=== PATIENT | male | born 1960 | race Caucasian/White ===

== ENCOUNTER 2017-01-12 13:53 | Emergency (ER) | payer OTHER ==
[~2017-01-12] VITALS: Ht 180.3 cm; Wt 79.5 kg
[~2017-01-12 13:53] MED LIST: CLOP75TA28 PO; FERR-83 PO; FURO40TA4 PO; HYDR-4003 PO; HYDR30CR98 RC; HYG25 PO; INSU100I SQ; INSU100I13 SUBQ; LABE200T PO; LIDO15CR9 TP; LIP40 PO; LISI10TA PO; LISI40TA PO; LORA1TAB PO; TORS20TA3 PO; TRAM50TA2 PO
[2017-01-12 14:18] VITALS: BP 182/88; PULSE 83; RESP 15; O2SAT 99
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
[2017-01-12] MEDS: Ondansetron 2 mg/mL 2 mL Inj IVPUSH PRN ×2 (17:29→20:41)
[2017-01-12] MEDS: HYDROmorphone 0.5 mg/0.5 mL iSecure Syringe IVPUSH PRN ×2 (17:30→20:41)
[2017-01-12 17:32] VITALS: BP 142/69; PULSE 85; O2SAT 89; O2SAT 94
[2017-01-12 17:39] LABS: BASOPHILS % (AUTO) 0.6 % (0-3); EOSINOPHILS % (AUTO) 3.5 % (0-5); Mean Corpuscular Hemoglobin 27.4 pg (27.0-35.0); Mean Corpuscular Volume 84.4 fL (81-100); NEUTROPHILS % (AUTO) 76.4 % (40-74); Platelet Count 249 bil/L (150-400)
[2017-01-12 18:07] LABS: INR 0.98 ratio
[2017-01-12 18:19] LABS: APPEARANCE,URINE HAZY (CLEAR,HAZY); COLOR,URINE YELLOW (YELLOW)
[2017-01-12 18:20] LABS: OCCULT BLOOD,URINE SMALL (NEGATIVE); UROBILINOGEN,URINE NORMAL (NORMAL)
[2017-01-12 19:32] VITALS: BP 155/78; PULSE 81; O2SAT 85
[2017-01-12 19:35] VITALS: O2SAT 95
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
[2017-01-12] MEDS ORDERED: INDA2.5T2 PO (19:48)
[2017-01-12] MEDS ORDERED: LISI10TA PO (19:48)
[2017-01-12] MEDS ORDERED: ONDA4TAB9 PO (20:17)
[2017-01-12 20:41] VITALS: BP 152/57; PULSE 78; RESP 13; O2SAT 98
[2017-02-07] MEDS ORDERED: ASPI-973 PO (18:53)
[2017-02-07] MEDS ORDERED: CARV6.252 PO (18:53)
[2017-02-07] MEDS ORDERED: BECL8.7A6 INHALATION (18:57)
[2017-02-07] MEDS ORDERED: INSU100C8 SUBQ (18:57)
[2017-02-07] MEDS ORDERED: LABE200T PO (18:57)
[2017-02-07] MEDS ORDERED: KEN1C EXT (18:57)
[2017-02-07] MEDS ORDERED: ALBU18HF INH (18:59)
== END 2017-01-12 20:42 | disposition home or self-care (01) ==
LOC: SED 13:53
DX: S06.0X0A Concussion without loss of consciousness, initial encounter (principal); M54.9 Dorsalgia, unspecified; I13.0 Hypertensive heart and chronic kidney disease with heart failure and stage 1 through stage 4 chronic kidney disease, or unspecified chronic kidney disease; I50.9 Heart failure, unspecified; N18.3 Chronic kidney disease, stage 3 (moderate); E11.22 Type 2 diabetes mellitus with diabetic chronic kidney disease; E11.43 Type 2 diabetes mellitus with diabetic autonomic (poly)neuropathy; J90 Pleural effusion, not elsewhere classified; V48.0XXA Car driver injured in noncollision transport accident in nontraffic accident, initial encounter; Y93.89 Activity, other specified; Y92.89 Other specified places as the place of occurrence of the external cause; Y99.8 Other external cause status; Z87.891 Personal history of nicotine dependence; Z85.9 Personal history of malignant neoplasm, unspecified; Z79.4 Long term (current) use of insulin; Z79.899 Other long term (current) drug therapy
CPT/HCPCS: 36415; 70450; 71020; 71250; 74176; 80053; 81000; 83690; 83735; 85025; 85610; 93005; 96374; 96375; 96376; 99285; J1170; J2405

== ENCOUNTER 2017-01-12 21:42 | Inpatient (IN) | payer OTHER ==
[~2017-01-12] VITALS: Ht 180.3 cm; Wt 81.7 kg
[~2017-01-12 21:42] MED LIST changes: +INDA2.5T2 PO; +ONDA4TAB9 PO
[2017-01-12 21:51] VITALS: BP 138/88; PULSE 91; RESP 15; O2SAT 93
[2017-01-12] MEDS ORDERED: Ondansetron 2 mg/mL 2 mL Inj ONE (22:33)
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
[2017-01-12 22:56] LABS: BASOPHILS % (AUTO) 0.3 % (0-3); EOSINOPHILS % (AUTO) 1.9 % (0-5); MONOCYTES % (AUTO) 5.9 % (4-12); Mean Corpuscular Hemoglobin 27.6 pg (27.0-35.0); NEUTROPHILS % (AUTO) 86.9 % (40-74); Platelet Count 223 bil/L (150-400)
[2017-01-12 23:15] LABS: INR 1.01 ratio
[2017-01-12 23:32] LABS: Magnesium 1.9 mg/dL (1.6-2.6)
[2017-01-12 23:36] LABS: TROPONIN T 0.136 ug/L (0.0-0.011)
[2017-01-13 00:14] VITALS: BP 160/71; PULSE 86; RESP 17; O2SAT 99
[2017-01-13] MEDS: 0.9% Sodium Chloride 1,000 ML IV SCH ×2 (00:36→13:06)
[2017-01-13] MEDS ORDERED: Glucose 40% Oral Gel 15 Gm Tube PO PRN (00:40)
[2017-01-13] MEDS ORDERED: Atropine 1 mg/10 mL (Code) Syringe IVPUSH PRN (00:40)
[2017-01-13] MEDS ORDERED: Ondansetron 2 mg/mL 2 mL Inj IVPUSH PRN (00:40)
[2017-01-13] MEDS ORDERED: Alum-Mag Hydrox-Simeth 30 mL Suspension PO PRN (00:40)
[2017-01-13 01:30] VITALS: BP 117/52; PULSE 86; RESP 19; O2SAT 94
[2017-01-13 01:51] LABS: Magnesium 1.9 mg/dL (1.6-2.6)
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
[2017-01-13 02:38] LABS: TROPONIN T 0.118 ug/L (0.0-0.011)
--- NOTE | 2017-01-13 02:54 | NUR ---
P) Admit Pt. admitted to CCU at approx. 0130 am, room 2012. Alert and oriented x1, knows he is in hospital but repeats the same question,"how'd I get here?" every 2-3 minutes. Lungs are coarse and with decreased breath sounds bilat. R>L, scattered crackles throughout. Denies pain, bowel tones hyperactive, states he had a BM yesterday. Lowe legs and feet with non-pitting edema and palpable but weak pedal pulses, has a small abrasion on the 2nd toe of his R foot, refused to wear hospital socks or let me check skin under pajama bottoms as he was 'Too cold". has scarring on his shins and abdomen. I) Meds per 's orders, reorient frequently E) Currently resting quietly and drinking diet soda's
--- NOTE | 2017-01-13 07:31 | DRSVH ---
PROCEDURE: X-RAY CHEST ONE VIEW, PORTABLE ([id number]) INDICATIONS: chest pain TECHNIQUE: One view of the chest was acquired. COMPARISON: [facility], CT, CT CHEST WO CON, 01/12/2017, 23:39. [facility], CR, XR CHEST 2VW, 01/12/2017, 16:51. FINDINGS: Surgical changes and devices: None. Lungs and pleura: No pneumothorax. No change in small right greater than left pleural effusions. Mod erate patchy opacity in the right lung base is unchanged. Mediastinum: Mediastinal contours appear normal. Heart size is normal. Bones and chest wall: No suspicious bony lesions. Overlying soft tissues appear unremarkable. IMPRESSION: 1. No change in right lung base pneumonia and right greater than left pleural effusions. Follow up pl ain films of the chest are recommended to ensure resolution, and to exclude underlying or central mal ignancy. Dictated by: Sara Romero M.D. on 01/13/2017 at 7:28 Approved by: Sara Romero M.D. on 01/13/2017 at 7:29
[2017-01-13 07:48] LABS: TROPONIN T 0.13 ug/L (0.0-0.011)
--- NOTE | 2017-01-13 07:50 | DRSVH ---
PROCEDURE: CT BRAIN WITHOUT CONTRAST ([id number]) INDICATIONS: decreased level of consciousness TECHNIQUE: Noncontrast 4.5 mm thick angled axial sections acquired from the foramen magnum to the vertex, with c oronal reformats. COMPARISON: [facility], CT, CT BRAIN WO CON, 01/12/2017, 16:53. FINDINGS: Image quality: Excellent. CSF spaces: Basal cisterns are patent. No extra-axial fluid collections. No change in prominent ex tra-axial fluid adjacent to the right cerebellar hemisphere. The ventricles are symmetric in size and shape. Brain: No intracranial bleeds or masses. No change in small chronic infarct adjacent to the left cau date head. There is cerebral volume loss for age, with resultant ventricular and sulcal prominence. There are periventricular and deep white matter chronic small vessel ischemic changes. There is intr acranial internal carotid artery atherosclerosis. Skull and face: Calvarium and visualized facial bones appear intact, without suspicious lesions. Sinuses: Visualized sinuses and mastoids are clear. IMPRESSION: No acute process. Concordant with preliminary interpretation. Dictated by: Sara Romero M.D. on 01/13/2017 at 7:47 Approved by: Sara Romero M.D. on 01/13/2017 at 7:48
--- NOTE | 2017-01-13 07:55 | DRSVH ---
PROCEDURE: CT CHEST WITHOUT CONTRAST ([id number]) INDICATIONS: dropping HCT, R/O expanding hemothorax TECHNIQUE: Noncontrast 5 mm thick sections acquired from the pulmonary apices to the posterior costophrenic angl es. 7 mm thick coronal and sagittal MIP reformats were then acquired. For radiation dose reduction, the following was used: automated exposure control, adjustment of mA and/or kV according to patient size. COMPARISON: [facility], CT, CT CHEST ABD PELVIS WO CON, 01/12/2017, 18:43. FINDINGS: Image quality: Excellent. Lungs and pleura: No change in severe right lower lobe airspace opacity. No change in scattered left lung scarring and/or atelectasis.. No pneumothorax. No change in moderate right and small left pleur al effusions. Central and peripheral airways are patent and normal in caliber. Mediastinum: Heart size is normal. There is calcification of the coronary vasculature. No pericardia l effusion. No mediastinal adenopathy by size criteria. Thoracic aorta and central pulmonary arteri es are normal in size. Esophagus is normal in caliber. No hiatal hernia. Bones and chest wall: No suspicious bony lesions. No change in soft tissue density focus involving the left breast, measuring 20 mm. No change in mild T12 and L1 compression fractures. No definite acu te vertebral body compression fractures. No axillary or supraclavicular adenopathy by size criteria. Thyroid gland is grossly unremarkable as visualized. Abdomen: Visualized portions of the upper abdomen demonstrate bilateral perinephric fat stranding, a s before. IMPRESSION: 1. No significant change compared to 5.6.17 at 1843 hrs. 2. No change in right greater than left pleural effusions. 3. No change in bilateral perinephric fat stranding, consistent with renal injury. 4. No change in mild T12 and L1 compression fractures. 5. No change in left chest wall soft tissue density, possibly indicating gynecomastia. This could be further assessed with diagnostic mammography, if clinically indicated. 6. No change in right lower lobe pneumonia. 7. Concordant with preliminary interpretation. Dictated by: Sara Romero M.D. on 01/13/2017 at 7:48 Approved by: Sara Romero M.D. on 01/13/2017 at 7:53
[2017-01-13 08:40] VITALS: BP 180/82; PULSE 85; RESP 16; O2SAT 98
[2017-01-13] MEDS: Insulin LISPRO 300 Unit/3 mL Inj SUBQ SCH ×4 (09:03→20:41)
[2017-01-13] MEDS: Sodium Chloride LOK Flush 10 mL Syringe IVFLUSH SCH ×2 (09:10→16:34)
[2017-01-13 11:49] VITALS: BP 167/81; PULSE 85; RESP 16; O2SAT 95
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
[2017-01-13] MEDS: HYDROcodone-APAP 5-325 mg Tablet PO SCH ×2 (14:35→20:42)
--- NOTE | 2017-01-13 14:42 | NUR ---
SOB / HTN/ Glucose/Mentation: Patient reports SOB at rest. When RN is present in the room pt becomes restless and sits up at EOB. SpO2: mid to high 90's on 2L NC. Lung sounds decreased an auscultation. MD notified. No new orders at this time. When pt is alone in room he is able to have long telephone conversations with multiple people without difficulty and maintains saturations. Pt has been hypertensive most of shift and verbalizes concern to restart antihypertensives, diuretics and pain medication. MD notified. Order received to restart home PO medications. Awaiting pharmacy delivery. Will continue to monitor vitals. BG at breakfast time 108, lunch time 237. Pt refused sliding scale Humalog. States that he is sensitive and would become extremely hypoglycemic if he took it. MD notified and he would restart his home dose of Lantus. Patient is A&O X3, but states he doesn't remember anything after throwing up last night. Pt is forgetful and often asks same questions multiple times just minutes apart and is very repetitive in his conversations.
[2017-01-13 15:44] VITALS: BP 180/94; PULSE 81; RESP 18; O2SAT 95
--- NOTE | 2017-01-13 17:30 | DRSVH ---
[facility] [address] [place] [address] Echocardiogram Report Name: CRISTOFER GRISSOM Date: 01/13/2017 Height: 71 in Hospital Exam Location: [facility] Weight: 17 0 lb Gender: Male BSA: 2.0 m2 : 1960 Age: 56 yrs BP: 166/75 mmHg Reason For Study: Chest pain Ordering Physician: HOSPITALIST [facility] Performed By: Jordyn Hubbard Referring Physician: Tyron Garcia Interpretation Summary Normal sinus rhythm. Normal LV size; mild-moderate concentric LVH. EF is 40-45%. There is basal inferior akinesis; mid-inferior, mid- inferoseptal, dista inferior and distal septal hypokinesis. All other segments show normal wall motion. EPSS is 1.4 consistent with cardiomyopathy. Aortic valve sclerosis without stenosis or regurgitation. Mild MR in the setting of normal leaflets. D shaped LV consistent with elevated RV pressure; estimated PA systolic pressure os 59mm Hg assuming RA pressure of 8 mm hg. There is a large right pleural effusion. Compared to prior TTE performed 01/31/2016, basal inferior hypokinesis progressed to akinesis; mid-inferior, mid-inferoseptal , distal inferior and distal septal hypokinesis were there in hindsight but have gotten worse. EF is less dynamic down from 45-50% to 40-45%. Pleural effusion is new. D shaped LV in systole is new. PA systolic pressure silvana slightly from 55 mm Hg to 59 mm Hg. Procedure: A two-dimensional transthoracic echocardiogram with color flow and Doppler was performed. The study quality was technically good. Comparison is made with the echocardiogram of 01/31/2016. The patient was in normal sinus rhythm during the exam. Left Ventricle: The left ventricle is normal in size. Left ventricular wall thickness is mild-moderately increased. The ejection fraction is estimated to be 40-45%. Flattened septum is consistent with RV pressure overload. Assessment of diastolic parameters suggests a pseudonormalization pattern, consistent with elevated filling pressures. Right Ventricle: The right ventricle is normal in size and function. Atria: Both atria are moderately dilated. The interatrial septum is intact with no evidence for an atrial septal defect. Mitral Valve: The mitral valve leaflets appear mildly thickened, but open well. There is mild mitral regurgitation. Aortic Valve: The aortic valve is trileaflet. The aortic valve opens well. The aortic valve is mildly calcified. There is trace aortic regurgitation. Tricuspid Valve: The tricuspid valve is normal. There is trace tricuspid regurgitation. The right ventricular systolic pressure is estimated at 60 mmHg assuming a right atrial pressure of 8 mm Hg. Pulmonic Valve: The pulmonic valve is normal in structure and function. There is trace pulmonic regurgitation. Great Vessels: The aortic root is normal size. The ascending aorta is mildly enlarged. The IVC is dilated (diameter is greater than 2.1 cm) yet it collapses greater than 50% with a sniff. This suggests a right atrial pressure of 8 mm Hg. Pericardium/ Pleura There is a trivial pericardial effusion noted. There is a moderately large right-sided pleural effusion. MMode/2D Measurements & Calculations LVIDd: 5.5 cm RA long axis: 6.0 cm LVOT diam LVIDs: 4.1 cm LA A2 area: 21.6 cm FS: 25.3 % LA A4 area: 29.5 cm RA area: 24.4 cm Ao root diam EPSS: 1.4 cm LA length (vol): 6.6 cm RA vol: 84.7 ml IVSd: 1.4 cm LA vol: 81.6 ml RA : 43.0 ml/m2 Aortic Jxn LVPWd: 1.2 cm LA vol index asc Aorta Diam: 3.5 cm IVC diam: 1.8 cm EDV(MOD-sp2) LV burris. diameter/BSA LV sys. diameter/BSA RVD1 (basal) (cm/m^2): 2.8 (cm/m^2): 2.1 : 3.9 cm ESV(MOD-sp2) EF(MOD-sp2) RVD2 (mid) TAPSE: 1.9 cm : 2.7 cm Doppler Measurements & Calculations Ao V2 max MV E max shakeel MV E/A: 1.0 TR max shakeel : 169.9 cm/sec : 121.4 cm/sec Med Peak E' Shakeel : 358.7 cm/sec Ao max PG MV A max shakeel TR max PG : 11.6 mmHg : 116.2 cm/sec E/E' med: 18.7 : 51.5 mmHg Ao mean PG MV P1/2t: 42.2 msec Lat Peak E' Shakeel PA V2 max : 78.7 cm/sec LVOT Max Shakeel E/E' lat: 12.7 PA mean PG : 87.9 cm/sec E/e' average PA Accel Time SANJAY(I,D): 1.9 cm MV A dur: 0.12 sec: 0.11 sec sev ratio MV dec time MV P1/2t max shakeel Ao V2 mean LV V1 max PG : 0.15 sec : 120.3 cm/sec MVA(P1/2t): 5.2 cm2 Ao V2 VTI: 37.1 cmLV V1 VTI SANJAY(V,D): 2.0 cm2 : 18.5 cm PA V2 mean SANJAY indexed to BSA : 55.6 cm/sec (cm^2/m^2): 0.98 Reading Physician:05:29 PM
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
[2017-01-13 19:51] VITALS: BP 147/67; PULSE 63; RESP 15; O2SAT 99
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
[2017-01-13] MEDS: LORazepam 1 mg Tablet PO SCH (20:42)
[2017-01-13] MEDS: Insulin GLARgine 100 Unit/mL Syringe SUBQ SCH (21:54)
[2017-01-14] VITALS (8 sets, daily range): BP systolic 128–158; BP diastolic 57–68; PULSE 58–74; RESP 12–20; O2SAT 92–100
[2017-01-14] MEDS: Sodium Chloride LOK Flush 10 mL Syringe IVFLUSH SCH ×3 (00:35→16:17)
[2017-01-14] MEDS: HYDROcodone-APAP 5-325 mg Tablet PO SCH ×4 (02:59→21:41)
[2017-01-14 03:14] LABS: BASOPHILS % (AUTO) 0.3 % (0-3); EOSINOPHILS % (AUTO) 4.6 % (0-5); MONOCYTES % (AUTO) 8.2 % (4-12); Mean Corpuscular Hemoglobin 27.4 pg (27.0-35.0); Mean Corpuscular Volume 86.7 fL (81-100); NEUTROPHILS % (AUTO) 70.2 % (40-74); Platelet Count 198 bil/L (150-400)
[2017-01-14 04:02] LABS: Phosphorus 5.2 mg/dL (2.5-4.9)
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
[2017-01-14] MEDS: Insulin LISPRO 300 Unit/3 mL Inj SUBQ SCH ×4 (07:38→21:42)
--- NOTE | 2017-01-14 09:55 | DRSVH ---
PROCEDURE: US GUIDE NEEDLE PLACE,REF MD INDICATIONS: right pleural effusion COMPARISON: None. FINDINGS: Moderate to large right and trace left pleural effusions are noted. The right chest was lo calized for thoracentesis to be performed by referring Urvashi IMPRESSION: Localization of the moderate to large right pleural effusion for thoracentesis to be per formed by the referring physician. Dictated by: Derik MOHAMUD Interpreted: Kalina Echeverria MD on 01/14/2017 at 9:53 Transcribed by: JAYESH on 01/14/2017 at 9:54 Approved by: Kalina Echeverria M.D. on 01/15/2017 at 17:12
--- NOTE | 2017-01-14 10:28 | PCM.PROC ---
Procedure Note Date of Service: January 14, 2017 Pre Procedure Diagnosis: Right pleural effusion Post Procedure Diagnosis: Right pleural effusion Procedure: Right sided ultrasound guided thoracentesis Provider and Switch Operator: MD Amelia Meek DO (PGY-3) Indication for Procedure: Shortness of breath, orthopnea, paroxysmal nocturnal dyspnea Procedural Analgesia: Lidocaine 1% Procedure Details: Procedure was discussed with the patient including risks, benefits, and indications. Consent was obtained and signed form is in the chart. switch technician was present in the room and evaluated the right chest for optimal point of entry. That spot was marked. Patient was prepped and draped in the sterile fashion. The ribs above and below the zak were identified as anatomical markers. Lidocaine was used for analgesia starting superficially with a skin wheal. Using the lower rib as a landmark, analgesia was continued deeper into the soft tissue. The needle was withdrawn. A scalpel was used to you the skin to facilitate easier placement of the catheter. Catheter was then placed with ongoing negative pressure with serous fluid beginning to flow into the syringe at approximately 3 cm depth. The catheter was advanced over the needle and the needle removed. A 60 cc syringe was used to withdraw lab specimens. Then the catheter was attached to wall suction and 1.65L of serous fluid was removed. Patient began to endorse pleuritic chest pain and the procedure was stopped at that time. Chest pain resolved with cessation of the suction. The catheter was removed. Pressure was held over the wound for approximately five minutes then covered with a bandage. Specimen: Approximately 60 cc of pleural fluid sent to the lab for cell count, gram stain , C&S, LDH, protein, pH, glucose. 1650 cc collected via suction to be disposed of. Post Procedure Plan: Post-procedure chest x-ray immediately following the procedure then again tomorrow morning. Will calculate Light's criteria once the laboratory information returns. Attending Statement I examined the patient prior to the procedure and was present and personally supervised the entire procedure which was performed by Dr. Jaramillo without difficult or complication copies to: Riki Cowan MD; Alisson Contreras Jennifer E DO January 14, 2017 10:28 Reinaldo Hutton MD January 14, 2017 15:58
--- NOTE | 2017-01-14 10:36 | DRSVH ---
PROCEDURE: X-RAY CHEST ONE VIEW ([id number]) INDICATIONS: post-thoracentesis TECHNIQUE: One view of the chest was acquired. COMPARISON: [facility], US, US GUIDE NEEDLE PLACE,REF MD, 01/14/2017, 9:28. [facility], CT, CT CHEST WO CON, 01/12/2017, 23:39. [facility], CR, XR CHEST 1VW (PORTABL E), 01/12/2017, 22:27. FINDINGS: Surgical changes and devices: None. Lungs and pleura: No pneumothorax post recent right thoracentesis. Small residual right pleural effu luci is present and trace left redemonstrated. Persistent bibasilar airspace opacities noted consist ent with compressive atelectasis versus pneumonia. Mediastinum: Mediastinal contours appear normal. Heart size is enlarged. Bones and chest wall: No suspicious bony lesions. Overlying soft tissues appear unremarkable. IMPRESSION: 1. No pneumothorax post recent right thoracentesis small residual right and trace left pleural effusi on redemonstrated. Dictated by: Derik MOHAMUD Interpreted: Sara Romero MD on 01/14/2017 at 10:34 Transcribed by: RIOS on 01/14/2017 at 10:36 Approved by: Sara Romero M.D. on 01/14/2017 at 10:51
[2017-01-14 10:48] LABS: TOTAL PROTEIN,PLEURAL FLUID 2.3 g/dL
[2017-01-14 11:01] LABS: BFWBC 55 /mm3
[2017-01-14 11:02] LABS: MONOCYTES,BODY FLUID 70 %; OTHER CELLS,BODY FLUID 0
--- NOTE | 2017-01-14 11:46 | NUR ---
Wound Care Wound evaluation orders received, pt seen at bedside. 56 yo diabetic male admitted to [facility] for decreased level of consciousness. Presents with a chronic diabetic ulcer at his right lateral foot. Wound measures 1.5 cm L x 0.5 cm W x 0.7 cm D. Edges are calloused, drainage is scant and without odor, there is no erythema or tunneling. Cleaned with saline and sterile Q tip, redressed with hydrogel,calmoseptine and foam dressing.Can be changed by nursing q 48 hrs.
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
[2017-01-14] MEDS ORDERED: Darbepoetin Alfa 60 mCg/0.3 mL Inj SUBQ ONE (13:55)
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
--- NOTE | 2017-01-14 16:01 | NUR ---
DOWNGRADE TO PCC/THORACENTESIS Patient stable overnight, no issues w/ vitals or tele, only issue w/ short term memory loss. Received orders for patient to downgrade to PCC w/ tele. Thoracentesis performed today, consent signed prior to procedure, patient tolerated well. Approximately 1800 mL pulled from R pleural effusion, patient reports he is able to breathe better since procedure. Will continue to monitor vitals and tele, as well as respiratory status and puncture site.
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
[2017-01-14] MEDS: 0.9% Sodium Chloride 1,000 ML IV SCH (21:35)
[2017-01-14] MEDS: LORazepam 1 mg Tablet PO SCH (21:41)
[2017-01-14] MEDS: Insulin GLARgine 100 Unit/mL Syringe SUBQ SCH (21:42)
[2017-01-15] VITALS (12 sets, daily range): BP systolic 122–169; BP diastolic 59–81; PULSE 62–103; RESP 11–20; O2SAT 93–96
[2017-01-15] MEDS: Sodium Chloride LOK Flush 10 mL Syringe IVFLUSH SCH ×4 (00:30→21:12)
[2017-01-15] MEDS: HYDROcodone-APAP 5-325 mg Tablet PO SCH ×4 (03:10→21:29)
[2017-01-15 03:23] LABS: BASOPHILS % (AUTO) 0.3 % (0-3); EOSINOPHILS % (AUTO) 4.1 % (0-5); Mean Corpuscular Hemoglobin 27.2 pg (27.0-35.0); Mean Corpuscular Volume 85.7 fL (81-100); NEUTROPHILS % (AUTO) 71.2 % (40-74); Platelet Count 208 bil/L (150-400)
[2017-01-15 05:03] LABS: Phosphorus 4.5 mg/dL (2.5-4.9); Unsaturated Iron Binding 177.7 ug/dL
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
--- NOTE | 2017-01-15 07:27 | NUR ---
Pain Pt continued to have pain in the thoracentesis site throughout the night that increased with movement, deep breathing, and coughing. Pt received the scheduled Jackson and the pain was brought down from an 8/10 to 5/10 which the pt stated is where he can tolerate the pain.
[2017-01-15] MEDS: Insulin LISPRO 300 Unit/3 mL Inj SUBQ SCH ×4 (08:00→21:29)
[2017-01-15] MEDS: 0.9% Sodium Chloride 1,000 ML IV SCH (08:02)
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
--- NOTE | 2017-01-15 16:06 | NUR ---
Social Work Note: Continued Discharge Planning Data& Assessment: Per MD in morning rounds, pt is experiencing short term memory loss and MD is concerned that pt may not be able to care for himself if his memory does not improve by the time he is medically ready for discharge. GARRETT submitted a RITESH referral to have pt assessed for in home care giving or skilled nursing care if appropriate. This is to prepare for potential terminal makeup operator needs of pt until is memory improves or in case his memory is not expected to improve. GARRETT to continue to follow. Plan: Per MD in morning rounds, pt is not medically ready for discharge at this time. RITESH referral faxed.SW to continue to follow for progression medically and in regard to his short term memory loss. SHAYAN Lucero
[2017-01-15] MEDS ORDERED: Furosemide 10 mg/mL 4 mL Inj IV ONE ×3 (16:50→22:45)
[2017-01-15] MEDS ORDERED: Iron Sucrose Inj 200 MG in 0.9% Sodium Chloride 100 ML IV ONE (17:15)
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
--- NOTE | 2017-01-15 17:19 | DRSVH ---
PROCEDURE: X-RAY CHEST ONE VIEW, PORTABLE ([id number]) INDICATIONS: pleural effusion TECHNIQUE: One view of the chest was acquired. COMPARISON: [facility], CR, XR CHEST 1VW, 01/14/2017, 10:00. FINDINGS: Surgical changes and devices: None. Lungs and pleura: Overall, no interval change in small right pleural effusion with adjacent atelectas is. There is also no interval change in the appearance of trace left pleural fluid with adjacent atel ectasis. No definite new consolidation is seen. No pneumothorax identified Mediastinum: Mediastinal contours appear normal. Heart size is normal. Bones and chest wall: No suspicious bony lesions. Overlying soft tissues appear unremarkable. IMPRESSION: Overall, stable appearance since yesterday. No pneumothorax. Dictated by: Shiraz Talbot M.D. on 01/15/2017 at 17:16 Approved by: Shiraz Talbot M.D. on 01/15/2017 at 17:17
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
[2017-01-15] MEDS ORDERED: Sodium Chloride LOK Flush 10 mL Syringe IVFLUSH PRN ×2 (18:05)
[2017-01-15] MEDS ORDERED: Nitroglycerin 2% 1 Gm Ointment TOPICAL SCH (18:10)
[2017-01-15] MEDS ORDERED: DOPamine 800 mg/250 mL D5W 800,000 MCG in IV Premix 1 EACH IV SCH (18:10)
--- NOTE | 2017-01-15 18:28 | NUR ---
Cardiac Tele: SR 60s. Pt states he has been having intermittent central CP exacerbated by activity, relieved by stopping, for a couple of months. No report of this CP to this RN today. Pain located at site of puncture for thoracentesis yesterday, and lower back pain. Received scheduled [place] as ordered, with some relief. Pt to receive to 2 PRBCs this yordy, lasix in between units. PICC line being placed at this time. Dopamine to start once PICC in place. See cardiology note for full plan.
[2017-01-15] MEDS: 0.9% Sodium Chloride 250 ML IV SCH ×2 (20:38→23:05)
--- NOTE | 2017-01-15 21:06 | DRSVH ---
PROCEDURE: X-RAY PICC LINE PLACEMENT BY NURSE ([id number]) INDICATIONS: inotropic support COMPARISON: [facility], CR, XR PICC LINE PLACE BY NURSE, 12/09/2015, 13:03. FINDINGS: PICC was placed by the intravenous therapy team from the right side. Fluoroscopic spot fi lm demonstrates tip of PICC in the lower SVC. IMPRESSION: Tip of PICC lies within the lower SVC. Dictated by: Shiraz Talbot M.D. on 01/15/2017 at 21:03 Approved by: Shiraz Talbot M.D. on 01/15/2017 at 21:04
[2017-01-15] MEDS: Senna-Docusate 8.6-50 mg Tablet PO PRN (21:29)
[2017-01-15] MEDS: LORazepam 1 mg Tablet PO SCH (21:29)
[2017-01-15] MEDS: Insulin GLARgine 100 Unit/mL Syringe SUBQ SCH (21:30)
[2017-01-16] VITALS (9 sets, daily range): BP systolic 141–200; BP diastolic 71–97; PULSE 61–92; RESP 16–20; O2SAT 87–98
[2017-01-16] MEDS: HYDROcodone-APAP 5-325 mg Tablet PO SCH ×4 (02:42→22:12)
[2017-01-16] MEDS: Nitroglycerin 2% 1 Gm Ointment TOPICAL SCH ×4 (02:42→22:12)
[2017-01-16 03:16] LABS: BASOPHILS % (AUTO) 0.3 % (0-3); EOSINOPHILS % (AUTO) 3.6 % (0-5); MONOCYTES % (AUTO) 7.4 % (4-12); Mean Corpuscular Hemoglobin 28.5 pg (27.0-35.0); Mean Corpuscular Volume 85.9 fL (81-100); NEUTROPHILS % (AUTO) 75.8 % (40-74); Platelet Count 216 bil/L (150-400)
[2017-01-16 03:40] LABS: Magnesium 1.8 mg/dL (1.6-2.6)
--- NOTE | 2017-01-16 05:42 | NUR ---
Blood / Dopamine / Respiratory 2 units PRBC administered this shift without incident; Hgb redraw post-infusion increased from 7.8 to 10.1. Pt started on dopamine gtt after PICC successfully placed; pt experienced increase in HR from 60s to 110s and significant nausea with vomiting. Dopamine gtt stopped; restarted after a rest period; same s/s displayed within minutes of reinitiating - gtt stopped and remained off throughout rest of shift. Nausea and vomiting subside approx. 10-15 minutes after discontinuation of gtt each time. Pt on RA throughout shift until approx. 0200 with SpO2 87% on RA - 2L NC placed. VSS; intermittent HTN with SBP ranging between 120s-160s. Pt states SBP of 160 is "mild" for him; reports average SBP ranges in 170s at rest. Tele SR 60s. Pt AOX3 though still forgetful, needs frequent reminders of plan of care. Addendum: 01/16/17 at 0558 by OCTAVIO FORET RN Pt reports pain to chest throughout shift, exacerbated with lying down and relieved with upright posture; receives [place] Q6H with relief upon reassessments; no further c/o pain this AM, pt reports pain is "okay".
[2017-01-16] MEDS: Insulin LISPRO 300 Unit/3 mL Inj SUBQ SCH ×4 (08:00→21:54)
[2017-01-16] MEDS: Sodium Chloride LOK Flush 10 mL Syringe IVFLUSH SCH ×2 (08:53→15:44)
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
[2017-01-16] MEDS: DOBUTamine 500 mg/250 D5W 500,000 MCG in IV Premix 1 EACH IV SCH (10:27)
--- NOTE | 2017-01-16 14:48 | PATH ---
SURGICAL PATHOLOGY Attending Physician:Sameer Clark M.D. CASE STATUS: Signed Out PATIENT NAME: CRISTOFER GRISSOM PID: [id number] : 1960 DATE COLLECTED:01/14/2017 00:00 SPECIMEN: Pleural Fluid CLINICAL HISTORY: Pleural Fluid ICD-10 code not given FINAL DIAGNOSIS: 1.PLEURAL FLUID (SIDE NOT SPECIFIED): NEGATIVE FOR MALIGNANT CELLS. INFLAMMATORY CELLS AND MESOTHELIAL CELLS ARE PRESENT. ICD10 [id number] GROSS DESCRIPTION: Received fresh on 01/15/2017 is approximately 40 cc of clear yellow fluid. Prepared are one cell block, one ThinPrep and one Cytospin slides. Vo ICD-9 CODES: CPT CODES: 1: 02181, 70847, 91802 Electronically Signed Out Shalom Schaffer MD [facility] [address], [place] [address] Technical component performed at [facility], [facility] [address], [place], [address]
[2017-01-16] MEDS ORDERED: LORazepam 1 mg Tablet PO ONE (15:00)
--- NOTE | 2017-01-16 16:35 | NUR ---
Dobutamine/Neuro The pt was started on dobutamine drip at 2.5/hour, then increased to 5/hr per cardiology. The pt is tolerating the medication well. Intermittent confusion and anxiety continued to be noted throughout the shift, and an order was placed for a neuro consult, EEG, head CT and MRI.
--- NOTE | 2017-01-16 16:53 | NUR ---
Social Work Note: Continued Discharge Planning Data& Assessment: Per MD in morning rounds, pt short term memory loss is improving. SW received phone call from home [facility] community services regarding [facility] referral. SW explained pt may be improving. [facility] requested a new referral be sent in if pt ends up requiring in home caregiving vs. LTC. Neuro consult pending. SW to continue to follow for medical progression in order to inform further discharge planning needs. Plan: SW to continue to follow for medical progression in order to inform further discharge planning needs. SW to send in another [facility] referral if pt memory does not improve in anticipation pt may require caregiving or half-way care. SW to continue to follow. SHAYAN Lucero
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
--- NOTE | 2017-01-16 18:02 | DRSVH ---
PROCEDURE: MRA ANGIOGRAM HEAD WITHOUT CONTRAST ([id number]) INDICATIONS: Encephalopathy TECHNIQUE: Noncontrast axial 3-D [id number] MR angiogram, with 3-dimensional maximum intensity projection (M IP) reformats of the internal carotid arteries and posterior circulation then performed. COMPARISON: [facility], CT, CT BRAIN WO CON, 01/12/2017, 16:53. [facility], CT, CT BRAIN WO CON, 01/12/2017, 23:36. [facility], MR, MR BRAIN WO CON, 01/16/2017, 16:37 . FINDINGS: Image quality: Excellent. Anterior circulation: Intracranial internal carotid arteries demonstrate normal size and intralumina l flow signal. The flow within the paired anterior cerebral arteries is normal and symmetric. The f low within the middle cerebral arteries is normal and symmetric. The anterior communicating artery i s seen. No stenoses, occlusions, or aneurysms. Posterior circulation: Visualized portions of the vertebral arteries demonstrate normal caliber, and join to form a normal appearing basilar artery. origin of the right posterior cerebral artery . The flow within the posterior cerebral arteries is normal and symmetric. No stenoses, occlusions, or aneurysms. IMPRESSION: 1. No significant stenosis in anterior or posterior circulations. 2. origin of the right posterior cerebral artery. Dictated by: Dennis Quiroz M.D. on 01/16/2017 at 17:57 Approved by: Dennis Quiroz M.D. on 01/16/2017 at 18:00
--- NOTE | 2017-01-16 18:06 | DRSVH ---
PROCEDURE: MRI BRAIN WITHOUT CONTRAST ([id number]) INDICATIONS: Encephalopathy TECHNIQUE: Non-contrast axial T1 spin echo, axial T2 fast spin echo, sagittal and axial FLAIR, coronal T2 fast s pin echo, axial gradient echo, axial diffusion and ADC through the brain. COMPARISON: [facility], CT, CT BRAIN WO CON, 01/12/2017, 23:36. FINDINGS: Image quality: Excellent. CSF spaces: Ventricles appear symmetric in size and shape. Basal cisterns are patent. No extra-axi al fluid collections. Brain: No intracranial bleeds or mass effects. There is cerebral volume loss for age. There are a few foci of T2/FLAIR hyperintensity in the periventricular and deep white matter, compatible with mil d chronic small vessel ischemic changes. Brainstem appears normal. Diffusion-weighted images show n o acute ischemic insults. No chronic ischemic insults. Normal intravascular flow voids are present. Skull and face: Calvarial bone marrow is normal in signal. Orbits are normal. Sinuses: Sinuses and mastoids are clear. IMPRESSION: 1. No acute intracranial abnormalities. 2. A few foci of T2/FLAIR hyperintensity in the left periventricular white matter, compatible with mi ld chronic microvascular ischemic changes. Dictated by: Dennis Quiroz M.D. on 01/16/2017 at 18:01 Approved by: Dennis Quiroz M.D. on 01/16/2017 at 18:05
--- NOTE | 2017-01-16 18:22 | PCM.PNNEPH ---
Subjective Date of Service January 16, 2017 Subjective The patient's renal function continues to improve. His mental status has also shown some improvement. His blood pressure remains somewhat labile and his systolic has ranged between 120 and 180. This should be noted that he has severe peripheral autonomic and sensory neuropathy which is no doubt driving some of his blood pressure fluctuations. Last 24 hours his intake and output was 3900 in and 2675 out with 3150 out already today. He was given 2 units of packed red cells and his hemoglobin today is 10.1. Sodium is 140, potassium 5.5 , chloride 106, BUN and creatinine were 64 and 2.75 with phosphorus of 5.0. Exam Vital Signs Vital Sign - Last Date Time Temp Pulse Resp B/P Pulse Ox O2 Delivery O2 Flow Rate FiO2 01/16/17 12:15 87 18 190/72 98 Room Air 01/16/17 08:15 36.6 2.00 Intake and Output 01/15/17 01/15/17 01/16/17 Cumulative From/Thru 15:00 23:00 07:00 01/12/17 21:51 - 01/16/17 06:37 Intake Total 2032 ml 1440 ml 9114 ml Output Total 1850 ml 3150 ml 8980 ml Balance 182 ml -1710 ml 134 ml Intake Oral 756 ml 800 ml 6350 ml IV Total 1068 ml 340 ml 2256 ml Packed Cells 208 ml 300 ml 508 ml Output Urine Total 1850 ml 3150 ml 8980 ml # Voids 4 # Bowel Movements 0 Exam Lungs are clear to auscultation. Heart is regular and rhythmical with a soft systolic murmur. Abdomen is soft without any tenderness or rebound guarding masses or hepatosplenomegaly. Extremities symmetric any evidence of any clubbing, cyanosis, or edema. Skin turgor is good. Lab and Diagnostics Result Diagram: 01/16/17 0310 01/16/17 031 Microbiology MRSA screen negative X-Rays, CTs and MRIs CT CHEST, ABDOMEN AND PELVIS WITHOUT CONTRAST 01/12 IMPRESSION: 1. Large right and small left low-density pleural effusions. These do not have the characteristic high density or intermediate density appearance of a hemothorax. Additionally, there is no chest wall injury. These findings may be associated with fluid overload. 2. No acute intra-abdominal findings. Right renal atrophy and compensatory hypertrophy of the left kidney is unchanged when compared with the prior study. Of note, there is increased perinephric fat stranding likely associated with the patient's progression of renal injury. 3. Superior endplate depression at T12 and L1 as above. The acuity of this finding is unknown. The most recent comparison of this region is from one year ago. Please correlate clinically. If the patient complains of focal, acute pain in this region, acute injury could be suspected. 4. Probable left gynecomastia. If further characterization is warranted, mammogram and ultrasound of this region is recommended to exclude breast mass. Dictated by: Irasema Alex M.D. on 01/12/2017 at 19:24 Approved by: Irasema Alex M.D. on 01/12/2017 at 19:35 X-RAY CHEST ONE VIEW, PORTABLE IMPRESSION: Overall, stable appearance since yesterday. No pneumothorax. Dictated by: Shiraz Talbot M.D. on 01/15/2017 at 17:16 Cardiac Echo Impressions Interpretation Summary Normal sinus rhythm. Normal LV size; mild-moderate concentric LVH. EF is 40-45% . There is basal inferior akinesis; mid-inferior, mid- inferoseptal, distal inferior and distal septal hypokinesis. All other segments show normal wall motion. EPSS is 1.4 consistent with cardiomyopathy. Aortic valve sclerosis without stenosis or regurgitation. Mild MR in the setting of normal leaflets. D shaped LV consistent with elevated RV pressure; estimated PA systolic pressure os 59mm Hg assuming RA pressure of 8 mm hg. There is a large right pleural effusion. Compared to prior TTE performed 01/31/2016, basal inferior hypokinesis progressed to akinesis; mid-inferior, mid-inferoseptal , distal inferior and distal septal hypokinesis were there in hindsight but have gotten worse. EF is less dynamic down from 45-50% to 40-45%. Pleural effusion is new. D shaped LV in systole is new. PA systolic pressure silvana slightly from 55 mm Hg to 59 mm Hg. Plan Impression Impression #1 acute on chronic kidney injury number to baseline chronic kidney disease stage IV #3 diabetic renal disease #4 hypertension with hypertensive heart disease and hypertensive nephrosclerosis #5 anemia secondary to chronic kidney disease Recommendations #1 as his renal function continues to approach baseline work with the primary team to get him on a good blood pressure regime. Thom Rolon DO January 16, 2017 18:22
[2017-01-16] MEDS: Insulin GLARgine 100 Unit/mL Syringe SUBQ SCH (22:11)
[2017-01-16] MEDS: LORazepam 1 mg Tablet PO SCH (22:12)
[2017-01-17] VITALS (8 sets, daily range): BP systolic 153–188; BP diastolic 73–84; PULSE 63–79; RESP 17–20; O2SAT 92–97
[2017-01-17] MEDS: Sodium Chloride LOK Flush 10 mL Syringe IVFLUSH SCH ×4 (02:34→21:09)
[2017-01-17] MEDS: HYDROcodone-APAP 5-325 mg Tablet PO SCH ×4 (03:43→21:08)
[2017-01-17] MEDS: Nitroglycerin 2% 1 Gm Ointment TOPICAL SCH ×4 (03:43→21:08)
--- NOTE | 2017-01-17 05:08 | NUR ---
Mentation/PICC Line DC'd Pt continues to be confused at times and the confusion increased once the pt was moved out of 2011 and into 2008. Pt was given his HS dose of Lorazepam. Did not see that the MD want to put a hold on benzodiazepines until after the pt received the HS medications. Pt pulled out his PICC line while asleep so the dobutamine drip is no longer running. Pt says that he woke up and he was standing there and saw blood everywhere. A clean dressing was applied along with pressure. Pt's right forearm SL still works.
[2017-01-17 05:09] LABS: Magnesium 1.7 mg/dL (1.6-2.6)
[2017-01-17] MEDS: DOBUTamine 500 mg/250 D5W 500,000 MCG in IV Premix 1 EACH IV SCH ×2 (07:25→21:09)
[2017-01-17 07:45] LABS: BASOPHILS % (AUTO) 0.5 % (0-3); EOSINOPHILS % (AUTO) 5.5 % (0-5); MONOCYTES % (AUTO) 10.6 % (4-12); Mean Corpuscular Hemoglobin 27.9 pg (27.0-35.0); Mean Corpuscular Volume 86.9 fL (81-100); NEUTROPHILS % (AUTO) 65.4 % (40-74); Platelet Count 219 bil/L (150-400)
[2017-01-17] MEDS: Insulin LISPRO 300 Unit/3 mL Inj SUBQ SCH ×4 (08:00→21:08)
[2017-01-17] MEDS ORDERED: Magnesium Sulf 2 Gm/50mL Water 2 GM in IV Premix 1 EACH IV ONE (08:25)
[2017-01-17] MEDS ORDERED: Furosemide 10 mg/mL 10 mL Inj IVPUSH ONE (08:35)
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
[2017-01-17] MEDS ORDERED: Furosemide 10 mg/mL 4 mL Inj IVPUSH ONE (10:35)
[2017-01-17] MEDS: Isosorbide Dinitrate 40 mg ER24 Tablet PO SCH ×2 (14:30→21:07)
--- NOTE | 2017-01-17 15:28 | PCM.PNNEPH ---
Subjective Date of Service January 17, 2017 Subjective The patient continues to improve. He still is having considerable fluctuations in his blood pressure in part due to peripheral autonomic neuropathy. His sensorium is improved and he denies any headache, chest pain or shortness of breath. His morning his sodium is 141, potassium 5.2, bicarbonate 24, chloride 105, BUN and creatinine are 63 and 2.85 which is roughly his baseline. His hemoglobin has dropped a bit to 9.4. Within the last year he has had a full upper or lower endoscopy evaluation and there was no evidence of any GI source of his anemia outside of his chronic kidney disease. He has recently been started on amlodipine and carvedilol shortly he has not responded well to these medications. I have followed this patient quite closely in the last year or so and have found that he responds best to labetalol, indapamide, and receptor malika such as losartan. Exam Vital Signs Vital Sign - Last Date Time Temp Pulse Resp B/P Pulse Ox O2 Delivery O2 Flow Rate FiO2 01/17/17 13:43 36.7 65 18 177/82 97 Nasal Cannula 2.00 Intake and Output 01/16/17 01/16/17 01/17/17 Cumulative From/Thru 15:00 23:00 07:00 01/12/17 21:51 - 01/17/17 05:41 Intake Total 700 ml 1036 ml 53497 ml Output Total 1325 ml 600 ml 13843 ml Balance -625 ml 436 ml -55 ml Intake Oral 700 ml 1036 ml 8086 ml IV Total 2256 ml Packed Cells 508 ml Output Urine Total 1025 ml 600 ml 81909 ml Emesis 300 ml 300 ml # Voids 4 # Bowel Movements 0 0 Exam Neck is supple without adenopathy, thyromegaly, or jugular venous distention. Lungs are clear to auscultation. Heart is regular with mechanical soft systolic murmur. Abdomen is soft without any tenderness or rebound guarding masses or hepatosplenomegaly. Extremities do not show any evidence of any clubbing, cyanosis or edema.` Lab and Diagnostics Result Diagram: 01/17/17 0724 01/17/17 0317 Microbiology MRSA screen negative X-Rays, CTs and MRIs CT CHEST, ABDOMEN AND PELVIS WITHOUT CONTRAST 01/12 IMPRESSION: 1. Large right and small left low-density pleural effusions. These do not have the characteristic high density or intermediate density appearance of a hemothorax. Additionally, there is no chest wall injury. These findings may be associated with fluid overload. 2. No acute intra-abdominal findings. Right renal atrophy and compensatory hypertrophy of the left kidney is unchanged when compared with the prior study. Of note, there is increased perinephric fat stranding likely associated with the patient's progression of renal injury. 3. Superior endplate depression at T12 and L1 as above. The acuity of this finding is unknown. The most recent comparison of this region is from one year ago. Please correlate clinically. If the patient complains of focal, acute pain in this region, acute injury could be suspected. 4. Probable left gynecomastia. If further characterization is warranted, mammogram and ultrasound of this region is recommended to exclude breast mass. Dictated by: Irasema Alex M.D. on 01/12/2017 at 19:24 Approved by: Irasema Alex M.D. on 01/12/2017 at 19:35 X-RAY CHEST ONE VIEW, PORTABLE IMPRESSION: Overall, stable appearance since yesterday. No pneumothorax. Dictated by: Shiraz Talbot M.D. on 01/15/2017 at 17:16 Cardiac Echo Impressions Interpretation Summary Normal sinus rhythm. Normal LV size; mild-moderate concentric LVH. EF is 40-45% . There is basal inferior akinesis; mid-inferior, mid- inferoseptal, distal inferior and distal septal hypokinesis. All other segments show normal wall motion. EPSS is 1.4 consistent with cardiomyopathy. Aortic valve sclerosis without stenosis or regurgitation. Mild MR in the setting of normal leaflets. D shaped LV consistent with elevated RV pressure; estimated PA systolic pressure os 59mm Hg assuming RA pressure of 8 mm hg. There is a large right pleural effusion. Compared to prior TTE performed 01/31/2016, basal inferior hypokinesis progressed to akinesis; mid-inferior, mid-inferoseptal , distal inferior and distal septal hypokinesis were there in hindsight but have gotten worse. EF is less dynamic down from 45-50% to 40-45%. Pleural effusion is new. D shaped LV in systole is new. PA systolic pressure silvana slightly from 55 mm Hg to 59 mm Hg. Plan Impression Impression #1 acute on chronic kidney injury which is resolved #260 daily stage IV #3 diabetic nephropathy #4 hypertension with hypertensive heart disease and hypertensive nephrosclerosis #5 anemia secondary to chronic kidney disease. Recommendations #1 as detailed above I would recommend specific changes in his antihypertensive medications. Thom Rolon DO January 17, 2017 15:28
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
--- NOTE | 2017-01-17 17:23 | NUR ---
Anxiety/POC The pt continues to appear anxious with small episodes of agitation. He was able to work it out without pharmalogical intervention. Doctors have pulled all scripts for benzos after the picc line was pulled last night. The plan is to continue to observe mentation and kidney function, as cardiology cannot intervene from a surgical standpoint until neuro and nephro improve.
--- NOTE | 2017-01-17 17:39 | NUR ---
Wound Note Patient seen at bedside for dressing change of right lateral foot, dimensions of the wound are unchanged and drainage is scant, periwound skin is intact and without erythema, cleaned wound with saline and gauze then redressed with hydrogel and adhesive foam dressing. Will follow up as needed during hospitalization.
[2017-01-17] MEDS: Insulin GLARgine 100 Unit/mL Syringe SUBQ SCH (21:08)
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
[2017-01-18] VITALS (7 sets, daily range): BP systolic 143–181; BP diastolic 61–84; PULSE 63–75; RESP 18–22; O2SAT 93–98
[2017-01-18] MEDS: HYDROcodone-APAP 5-325 mg Tablet PO SCH ×4 (02:40→22:01)
[2017-01-18] MEDS: Nitroglycerin 2% 1 Gm Ointment TOPICAL SCH ×3 (02:41→15:42)
[2017-01-18 03:22] LABS: BASOPHILS % (AUTO) 0.5 % (0-3); EOSINOPHILS % (AUTO) 3.8 % (0-5); MONOCYTES % (AUTO) 8.3 % (4-12); Mean Corpuscular Hemoglobin 28.5 pg (27.0-35.0); Mean Corpuscular Volume 86.8 fL (81-100); NEUTROPHILS % (AUTO) 72.7 % (40-74); Platelet Count 224 bil/L (150-400)
[2017-01-18 03:55] LABS: Magnesium 1.9 mg/dL (1.6-2.6); Phosphorus 4.9 mg/dL (2.5-4.9)
--- NOTE | 2017-01-18 06:00 | NUR ---
Pain / Respiratory Pt reports ongoing pain to thoracentesis site in between Vicodin doses at approx. 7/10; reports relief with medication administration and position changes to relieve pressure to R side of chest. Pt on 1.5L NC, denies dyspnea except when oxygen is removed; pt reports feeling dyspneic on exertion without nasal cannula. Desaturates to 87-88% on RA. Other VSS.
[2017-01-18] MEDS: Insulin LISPRO 300 Unit/3 mL Inj SUBQ SCH ×4 (08:00→21:59)
[2017-01-18] MEDS: Senna-Docusate 8.6-50 mg Tablet PO PRN ×2 (08:35→21:56)
[2017-01-18] MEDS: Isosorbide Dinitrate 40 mg ER24 Tablet PO SCH ×3 (08:36→22:00)
[2017-01-18] MEDS: Sodium Chloride LOK Flush 10 mL Syringe IVFLUSH SCH ×3 (08:36→22:01)
[2017-01-18] MEDS ORDERED: Ferric Sod Gluc Complex Inj 125 MG in 0.9% Sodium Chloride 100 ML IV ONE (10:30)
[2017-01-18] MEDS ORDERED: DARBEPOETIN ALFA 200 MCG/0.4 ML IV ONE (10:30)
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
--- NOTE | 2017-01-18 12:18 | PCM.PNNEPH ---
Subjective Date of Service January 18, 2017 Subjective The patient continues to improve. His sensorium is back to his baseline and he denies any chest pain, shortness of breath, nausea or vomiting. His blood pressures have ranged between the low 150s to 160 range. Last 24 hours his intake and output were 7 7060 N and 1475 out. His hemoglobin is 9.3 today, sodium is 140, potassium 5.3, chloride 104, bicarbonate 23, BUN and creatinine were 70 and 2.73. As his baseline of his chronic kidney disease. I had a discussion with Dr. Sanchez from cardiology as to her correction with . He is asked that I put him on his usual antihypertensive regime which has been working over the last few months. Exam Vital Signs Vital Sign - Last Date Time Temp Pulse Resp B/P Pulse Ox O2 Delivery O2 Flow Rate FiO2 01/18/17 08:00 36.8 66 148/67 97 Nasal Cannula 1.00 01/17/17 20:55 20 Intake and Output 01/17/17 01/17/17 01/18/17 Cumulative From/Thru 15:00 23:00 07:00 01/12/17 21:51 - 01/17/17 20:55 Intake Total 740 ml 36252 ml Output Total 1875 ml 50662 ml Balance -1135 ml -1190 ml Intake Oral 740 ml 8826 ml IV Total 2256 ml Packed Cells 508 ml Output Urine Total 1875 ml 12749 ml Emesis 300 ml # Voids 4 # Bowel Movements 0 Exam HEENT examination is remarkable for pale sclera. Neck is supple without adenopathy, thyromegaly, or jugular venous distention. Lungs are clear to auscultation with a few scattered rhonchi noted. She was medically with a soft systolic murmur. Abdomen is soft without any tenderness or rebound guarding masses or hepatosplenomegaly. Extremities do not show any evidence of any clubbing, cyanosis, or edema. Skin turgor is good. Lab and Diagnostics Result Diagram: 01/18/17 0305 01/18/17 0850 Microbiology MRSA screen negative X-Rays, CTs and MRIs CT CHEST, ABDOMEN AND PELVIS WITHOUT CONTRAST 01/12 IMPRESSION: 1. Large right and small left low-density pleural effusions. These do not have the characteristic high density or intermediate density appearance of a hemothorax. Additionally, there is no chest wall injury. These findings may be associated with fluid overload. 2. No acute intra-abdominal findings. Right renal atrophy and compensatory hypertrophy of the left kidney is unchanged when compared with the prior study. Of note, there is increased perinephric fat stranding likely associated with the patient's progression of renal injury. 3. Superior endplate depression at T12 and L1 as above. The acuity of this finding is unknown. The most recent comparison of this region is from one year ago. Please correlate clinically. If the patient complains of focal, acute pain in this region, acute injury could be suspected. 4. Probable left gynecomastia. If further characterization is warranted, mammogram and ultrasound of this region is recommended to exclude breast mass. Dictated by: Irasema Alex M.D. on 01/12/2017 at 19:24 Approved by: Irasema Alex M.D. on 01/12/2017 at 19:35 X-RAY CHEST ONE VIEW, PORTABLE IMPRESSION: Overall, stable appearance since yesterday. No pneumothorax. Dictated by: Shiraz Talbot M.D. on 01/15/2017 at 17:16 MRA ANGIOGRAM HEAD WITHOUT CONTRAST IMPRESSION: 1. No significant stenosis in anterior or posterior circulations. 2. origin of the right posterior cerebral artery. Dictated by: Dennis Quiroz M.D. on 01/16/2017 at 17:57 MRI BRAIN WITHOUT CONTRAST IMPRESSION: 1. No acute intracranial abnormalities. 2. A few foci of T2/FLAIR hyperintensity in the left periventricular white matter, compatible with mild chronic microvascular ischemic changes. Dictated by: Dennis Quiroz M.D. on 01/16/2017 at 18:01 Cardiac Echo Impressions Interpretation Summary Normal sinus rhythm. Normal LV size; mild-moderate concentric LVH. EF is 40-45% . There is basal inferior akinesis; mid-inferior, mid- inferoseptal, distal inferior and distal septal hypokinesis. All other segments show normal wall motion. EPSS is 1.4 consistent with cardiomyopathy. Aortic valve sclerosis without stenosis or regurgitation. Mild MR in the setting of normal leaflets. D shaped LV consistent with elevated RV pressure; estimated PA systolic pressure os 59mm Hg assuming RA pressure of 8 mm hg. There is a large right pleural effusion. Compared to prior TTE performed 01/31/2016, basal inferior hypokinesis progressed to akinesis; mid-inferior, mid-inferoseptal , distal inferior and distal septal hypokinesis were there in hindsight but have gotten worse. EF is less dynamic down from 45-50% to 40-45%. Pleural effusion is new. D shaped LV in systole is new. PA systolic pressure silvana slightly from 55 mm Hg to 59 mm Hg. Plan Impression Impression #1 acute on chronic kidney injury which has resolved #2 chronic kidney disease stage IV #3 diabetic nephropathy which is improving #4 hypertension with hypertensive heart disease and hypertensive nephrosclerosis which she is somewhat worse #5 anemia secondary to chronic kidney disease which is improving. Recommendations #1 I will go ahead and start him on a dose of Aranesp 60 mg today #225 mg of ferrous gluconate IV number. I would like to start him back on labetalol 200 mg by mouth twice a day, indapamide 2.5 mg daily, lisinopril 10 mg at bedtime, and torsemide 20 mg by mouth twice a day. My point of view he can be discharged today or tomorrow pending all final neurological clearance. I have also made arrangements for him to get outpatient erythropoietin and iron injections for his anemia of chronic kidney disease. Total time in the care of this patient was 40 minutes. Thom Rolon DO January 18, 2017 12:18
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
[2017-01-18] MEDS: DOBUTamine 500 mg/250 D5W 500,000 MCG in IV Premix 1 EACH IV SCH (21:49)
[2017-01-18] MEDS: Polyethylene Glycol (PEG) 17 Gm Powder PO PRN ×2 (21:56→22:55)
[2017-01-18] MEDS: Insulin GLARgine 100 Unit/mL Syringe SUBQ SCH (21:59)
[2017-01-19 00:25] VITALS: BP 174/80; PULSE 72; RESP 20; O2SAT 95
[2017-01-19] MEDS: HYDROcodone-APAP 5-325 mg Tablet PO SCH ×2 (02:57→09:34)
[2017-01-19 03:33] VITALS: BP 173/69; PULSE 69; RESP 18; O2SAT 97
--- NOTE | 2017-01-19 05:23 | PROCED ---
[address] [address] EEG PATIENT: CRISTOFER GRISSOM : 1960 MR#: [id number] ADMIT: 01/13/2017 JOB ID: [id number] DATE OF SERVICE: 01/18/2017 HISTORY: The patient is a 56-year-old man with altered mental status. TECHNICAL DESCRIPTION: This digital EEG was recorded using 25 scalp and ear and two EKG electrodes. It was reviewed in bipolar and referential montages following reformatting of the 10-20 [employer] Electrode Placement System. During the recording, the patient was noted to be awake, drowsy and asleep. The background was composed of an 8.5-9 hertz, 10-20 microvolts, symmetrical and reactive, posterior dominant rhythm that attenuated with eye opening. The rest of the background was composed of low voltage faster frequencies. There were no focal, lateralized or epileptiform discharges noted. There were no seizures seen. Sleep was characterized by the attenuation of the alpha rhythm and the appearance of symmetrical vertex waves, heralding stage 1 of sleep. This is followed by the development of symmetrical sleep spindles, heralding stage 2 of sleep. Hyperventilation was not performed. Photic stimulation from 1-30 hertz did not elicit any photic driving response. The EKG rhythm strip revealed a heart rate of 60-80 beats per minute with no apparent arrhythmias. IMPRESSION: This EEG performed in the awake, drowsy and asleep states is within normal limits.
--- NOTE | 2017-01-19 05:49 | NUR ---
Pain / Respiratory / Constipation Pt reports generalized pain at 7/10 before Vicodin administration, with consistent relief upon reassessments. Pt reports new bloating and cramping this HS r/t no bowel movement since arrival; Senna, prune juice, and Miralax x2 administered. Pt reports relief later in shift, though denies bowel movement - states "It feels like it's starting to work, it doesn't hurt as bad anymore." Pt on 1-2L NC intermittently, SpO2 91-93% on RA, tachypneic/dyspneic on exertion slightly. VSS. Tele SR 70s. Pt stated this HS "I'm getting out of here tomorrow, one way or another. I feel like you guys aren't doing anything for me anymore. I don't want to take the new medications, they make me feel logy; I just want to go back to my normal routine."
[2017-01-19 09:19] VITALS: BP 188/91; PULSE 67; RESP 20; O2SAT 92
[2017-01-19] MEDS: Insulin LISPRO 300 Unit/3 mL Inj SUBQ SCH ×2 (09:23→13:17)
[2017-01-19] MEDS: Polyethylene Glycol (PEG) 17 Gm Powder PO PRN (09:33)
[2017-01-19] MEDS: Sodium Chloride LOK Flush 10 mL Syringe IVFLUSH SCH (09:35)
[2017-01-19] MEDS: Senna-Docusate 8.6-50 mg Tablet PO PRN (09:35)
[2017-01-19] MEDS: Isosorbide Dinitrate 40 mg ER24 Tablet PO SCH (09:35)
[2017-01-19] MEDS: Polyethylene Glycol (PEG) 17 Gm Powder PO SCH ×2 (10:55→11:02)
[2017-01-19 11:04] VITALS: PULSE 72
[2017-01-19 12:11] VITALS: BP 158/64; PULSE 71; RESP 22; O2SAT 92
--- NOTE | 2017-01-19 12:44 | PCM.PNNEPH ---
Subjective Date of Service January 19, 2017 Subjective Patient is scheduled to be discharged today. Has just begun his normal blood pressure medication regime. He denies any headache, chest pain, shortness of breath, or edema. Exam Vital Signs Vital Sign - Last Date Time Temp Pulse Resp B/P Pulse Ox O2 Delivery O2 Flow Rate FiO2 01/19/17 12:11 36.8 71 22 158/64 92 Room Air 01/19/17 03:33 1.00 Intake and Output 01/18/17 01/18/17 01/19/17 Cumulative From/Thru 15:00 23:00 07:00 01/12/17 21:51 - 01/19/17 06:29 Intake Total 1511 ml 1136 ml 375 ml 85647 ml Output Total 300 ml 525 ml 37668 ml Balance 1211 ml 1136 ml -150 ml 1007 ml Intake Oral 1511 ml 1136 ml 375 ml 28037 ml IV Total 2256 ml Packed Cells 508 ml Output Urine Total 300 ml 525 ml 16462 ml Emesis 300 ml # Voids 3 2 9 # Bowel Movements 0 Exam Neck is supple without adenopathy, thyromegaly, or jugular venous distention. Lungs are clear to auscultation. Heart is regular rhythm with a soft systolic murmur. Abdomen is soft without any tenderness, rebound, guarding, masses, or hepatosplenomegaly. Extremities do not show any evidence of any clubbing, cyanosis, or edema. Skin turgor is good and there is no evidence of any rashes. Lab and Diagnostics Result Diagram: 01/18/17 0305 01/18/17 0850 Microbiology MRSA screen negative X-Rays, CTs and MRIs CT CHEST, ABDOMEN AND PELVIS WITHOUT CONTRAST 01/12 IMPRESSION: 1. Large right and small left low-density pleural effusions. These do not have the characteristic high density or intermediate density appearance of a hemothorax. Additionally, there is no chest wall injury. These findings may be associated with fluid overload. 2. No acute intra-abdominal findings. Right renal atrophy and compensatory hypertrophy of the left kidney is unchanged when compared with the prior study. Of note, there is increased perinephric fat stranding likely associated with the patient's progression of renal injury. 3. Superior endplate depression at T12 and L1 as above. The acuity of this finding is unknown. The most recent comparison of this region is from one year ago. Please correlate clinically. If the patient complains of focal, acute pain in this region, acute injury could be suspected. 4. Probable left gynecomastia. If further characterization is warranted, mammogram and ultrasound of this region is recommended to exclude breast mass. Dictated by: Irasema Alex M.D. on 01/12/2017 at 19:24 Approved by: Irasema Alex M.D. on 01/12/2017 at 19:35 X-RAY CHEST ONE VIEW, PORTABLE IMPRESSION: Overall, stable appearance since yesterday. No pneumothorax. Dictated by: Shiraz Talbot M.D. on 01/15/2017 at 17:16 MRA ANGIOGRAM HEAD WITHOUT CONTRAST IMPRESSION: 1. No significant stenosis in anterior or posterior circulations. 2. origin of the right posterior cerebral artery. Dictated by: Dennis Quiroz M.D. on 01/16/2017 at 17:57 MRI BRAIN WITHOUT CONTRAST IMPRESSION: 1. No acute intracranial abnormalities. 2. A few foci of T2/FLAIR hyperintensity in the left periventricular white matter, compatible with mild chronic microvascular ischemic changes. Dictated by: Dennis Quiroz M.D. on 01/16/2017 at 18:01 Cardiac Echo Impressions Interpretation Summary Normal sinus rhythm. Normal LV size; mild-moderate concentric LVH. EF is 40-45% . There is basal inferior akinesis; mid-inferior, mid- inferoseptal, distal inferior and distal septal hypokinesis. All other segments show normal wall motion. EPSS is 1.4 consistent with cardiomyopathy. Aortic valve sclerosis without stenosis or regurgitation. Mild MR in the setting of normal leaflets. D shaped LV consistent with elevated RV pressure; estimated PA systolic pressure os 59mm Hg assuming RA pressure of 8 mm hg. There is a large right pleural effusion. Compared to prior TTE performed 01/31/2016, basal inferior hypokinesis progressed to akinesis; mid-inferior, mid-inferoseptal , distal inferior and distal septal hypokinesis were there in hindsight but have gotten worse. EF is less dynamic down from 45-50% to 40-45%. Pleural effusion is new. D shaped LV in systole is new. PA systolic pressure silvana slightly from 55 mm Hg to 59 mm Hg. Plan Impression Impression #1 acute on chronic kidney injury which is resolved #2 stage IV chronic kidney disease #3 diabetic nephropathy #4 hypertension with hypertensive heart disease and hypertensive nephrosclerosis #5 anemia secondary to chronic kidney disease #6 hyperkalemia/type IV renal tubular acidosis. Recommendations #1 he can be discharged today and I would recommend giving him a dose of 30 g of Kayexalate. He is scheduled to follow-up in my office next week and at that time I will recheck his potassium. Thom Rolon DO January 19, 2017 12:44
--- NOTE | 2017-01-19 13:24 | PCM.DIMED ---
Discharge Instructions Date of Service January 19, 2017 Dates of Hospitalization January 13, 2017 at 00:43 Discharge Diagnosis Discharge Diagnosis Acute Encephalopathy secondary to Concussion syndrome Congestive Heart failure with a decrease in ejection fraction since last echocardiogram in acute exacerbation Hyperkalemia, chronic Diet Renal Diet (Avoid food reach in potassium. Read additional information you received in the hospital. ) Activity Other (Avoid heavy physical work or exertion ) Call your provider Fever or Chills, Shortness of breath, Bleeding, Chest pain, Weakness (unilateral ) Patient Instructions Follow-up plan Follow-up with your cloth desizing range tender, primary care doctor next week. CHF Clinic: 1 week Leonardo Llamas MD January 19, 2017 13:24
[2017-01-19] MEDS ORDERED: CARV6.252 PO (13:45)
[2017-01-19] MEDS ORDERED: AMLO10TA3 PO (13:45)
--- NOTE | 2017-01-19 15:29 | NUR ---
BP/BM/Discharge Pt's BP 188/91 prior to medication administration this am, Pt willing to take all PO BP medications with exception of hydralazine, Pt verbalized that he was feeling fatigued from all the BP medications he was on, information relayed to MD, BP this afternoon was 158/64. Pt constipated. Pt receiving Kayexalate for high potassium, Pt also received PRN senna/miralax in addition to prune juice with breakfast, Pt had no result, MD ordered additional dose of miralax which Pt received with another prune juice, Pt had BM this afternoon and refused ordered suppository. Pt had one additional dose of Kayexalate prior to discharge per MD instruction. Pt very adamant about discharging, MD made aware, discharge order placed. Pt discharged to home today at ~1425 with family. Pt's IV access D/C'd and intact. Pt given discharge educational materials on dialysis/ESRD diet, new prescriptions, CAD, and renal failure. Pt instructed to f/u with PCP and nephrology, Pt verbalized that he would make appointments. Pt verbalized understanding of all discharge instructions. All belongings accompanied Pt at time of discharge.
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
[2017-02-07] MEDS ORDERED: CARV6.252 PO (18:53)
[2017-02-07] MEDS ORDERED: ASPI-973 PO (18:53)
[2017-02-07] MEDS ORDERED: LABE200T PO (18:57)
[2017-02-07] MEDS ORDERED: KEN1C EXT (18:57)
[2017-02-07] MEDS ORDERED: INSU100C8 SUBQ (18:57)
[2017-02-07] MEDS ORDERED: BECL8.7A6 INHALATION (18:57)
[2017-02-07] MEDS ORDERED: ALBU18HF INH (18:59)
== END 2017-01-19 14:20 | disposition home or self-care (01) | DRG 102 ==
LOC: SED 21:42 → CCU 01-13 00:43 → PCC 01-14 08:40
PROVIDERS: ADMIT Hospitalist; ATTEND Hospitalist
PROC: 0W993ZX Drainage of Right Pleural Cavity, Percutaneous Approach, Diagnostic (ICD-10-PCS; 2017-01-14)
PROC: 30243N1 Transfusion of Nonautologous Red Blood Cells into Central Vein, Percutaneous Approach (ICD-10-PCS; 2017-01-15)
PROC: 4A00X4Z Measurement of Central Nervous Electrical Activity, External Approach (ICD-10-PCS; principal; 2017-01-18)
DX: F07.81 Postconcussional syndrome (principal); I50.23 Acute on chronic systolic (congestive) heart failure; J90 Pleural effusion, not elsewhere classified; E11.22 Type 2 diabetes mellitus with diabetic chronic kidney disease; E11.40 Type 2 diabetes mellitus with diabetic neuropathy, unspecified; N17.9 Acute kidney failure, unspecified; K31.84 Gastroparesis; N18.3 Chronic kidney disease, stage 3 (moderate); D62 Acute posthemorrhagic anemia; I13.0 Hypertensive heart and chronic kidney disease with heart failure and stage 1 through stage 4 chronic kidney disease, or unspecified chronic kidney disease; I25.110 Atherosclerotic heart disease of native coronary artery with unstable angina pectoris; Z87.891 Personal history of nicotine dependence; Z79.4 Long term (current) use of insulin; I73.9 Peripheral vascular disease, unspecified; D63.1 Anemia in chronic kidney disease; E11.43 Type 2 diabetes mellitus with diabetic autonomic (poly)neuropathy; E78.5 Hyperlipidemia, unspecified; Z86.14 Personal history of Methicillin resistant Staphylococcus aureus infection; R79.89 Other specified abnormal findings of blood chemistry

== ENCOUNTER 2017-02-08 02:26 | Day surgery (SDC) | payer OTHER ==
[2017-02-08] VITALS (17 sets, daily range): BP systolic 163–188; BP diastolic 62–82; PULSE 66–71; RESP 12–22; O2SAT 91–94
[~2017-02-08] VITALS: Ht 180.3 cm; Wt 77.2 kg
[~2017-02-08 02:26] MED LIST changes: +ALBU18HF INH; +AMLO10TA3 PO; +ASPI-973 PO; +BECL8.7A6 INHALATION; +CARV6.252 PO; -CLOP75TA28 PO; -FURO40TA4 PO; -HYG25 PO; +INSU100C8 SUBQ; -INSU100I SQ; +KEN1C EXT; -LIDO15CR9 TP; -LIP40 PO; -LISI10TA PO; -LISI40TA PO; -ONDA4TAB9 PO
[2017-02-08] MEDS ORDERED: 0.9% Sodium Chloride 1,000 ML IV ONE ×2 (06:25→13:05)
[2017-02-08 06:48] LABS: BASOPHILS % (AUTO) 0.5 % (0-3); EOSINOPHILS % (AUTO) 2.7 % (0-5); MONOCYTES % (AUTO) 6.8 % (4-12); Mean Corpuscular Hemoglobin 27.7 pg (27.0-35.0); Mean Corpuscular Volume 85.6 fL (81-100); NEUTROPHILS % (AUTO) 72.6 % (40-74); Platelet Count 292 bil/L (150-400)
--- NOTE | 2017-02-08 10:38 | NUR ---
NADEGE Admit to [facility] at 0600 for pre-hydration and heart cath. Sister at bedside. She left but will return to transport home if needed. HL x 2 placed and NS started at 100cc/hr. Labs drawn. ECG 12 obtained. Consent to be obtained by MD. History and medications reviewed. Pre-procedure teaching done and questions answered. Patient sleeping at this time.
[2017-02-08] MEDS ORDERED: Heparin 1,000 Units/500 mL NS Premix IV ONE (10:46)
[2017-02-08] MEDS ORDERED: 0.9% Sodium Chloride 0 ML ONE (10:46)
[2017-02-08] MEDS ORDERED: Heparin 10,000 Unit/1,000 mL NS Premix IV ONE (10:46)
[2017-02-08] MEDS ORDERED: fentaNYL-PF 50 mCg/mL 2 mL Inj ONE (11:35)
[2017-02-08] MEDS ORDERED: hydrALAZINE 20 mg/mL Inj ONE (11:44)
[2017-02-08] MEDS ORDERED: 0.9% Sodium Chloride 1,000 ML IV PRN (13:04)
[2017-02-08] MEDS ORDERED: 0.9% Sodium Chloride 250 ML IV PRN (13:04)
[2017-02-08] MEDS ORDERED: Ondansetron 2 mg/mL 2 mL Inj IVPUSH PRN (13:05)
[2017-02-08] MEDS ORDERED: Atropine 1 mg/10 mL (Code) Syringe IVPUSH PRN (13:05)
[2017-02-08] MEDS ORDERED: HYDROcodone-APAP 5-325 mg Tablet PO PRN (13:05)
--- NOTE | 2017-02-08 16:45 | NUR ---
NADEGE ASSUMED CARE OF PT AT 1500. RIGHT GROIN HAS REMAINED SOFT, NON TENDER, NO BLEEDING OR HEMATOMA NOTED. RIGHT DP PER DOPPLER, PT 1+. PT COMPLETED BEDREST AND AMBULATED IN [place] AND USED THE BR AND RIGHT GROIN REMAINED STABLE. NO CHANGES. DISCHARGE INSTRUCTIONS INCLUDING MEDICATIONS, F/U APPT AND LABS, AND POST SEDATION AND HEART CATH WERE ALL REVIEWED AND PT VERBALIZED UNDERSTANDING. HE WAS DISCHARGED AT 1635 IN STABLE CONDITION WITH A FRIEND.
--- NOTE | 2017-02-09 04:45 | CS94 ---
[address] [address] DIAGNOSTIC CARDIAC CATHETERIZATION PATIENT: CRISTOFER GRISSOM : 1960 MR#: [id number] ADMIT: 02/08/2017 JOB ID: [id number] SERVICE DATE: 02/08/2017 PROCEDURE: 1. Retrograde left heart catheterization. 2. Selective left and right coronary angiography. 3. Left ventricular hemodynamics. INDICATION: The patient has a known history of coronary artery disease, peripheral vascular disease, renal failure, type 2 diabetes, uncontrolled hypertension and chronic renal failure. The patient had an abnormal stress test. Therefore was scheduled for coronary angiography. Prior to the procedure the patient underwent hydration for renal protection. He is known to serum creatinine is 2.89. The patient is well aware of the complication of acute kidney injury secondary to contrast, however wishes to proceed. After a detailed conversation, education and counseling, patient signed the informed consent. DESCRIPTION OF PROCEDURE: The patient was brought to the cath laboratory and placed on the cath table. Both groins were prepped and draped in the usual sterile manner. Lidocaine 1% was infiltrated in the right groin area to achieve topical anesthesia. Using a micropuncture needle, the right femoral artery was accessed. Using standard technique, a 6-Romansh arterial sheath was placed in the right femoral artery without any difficulty. Subsequently, FR4 catheter was used to engage the left main coronary artery and three coronary views were obtained. Subsequently, FR4 catheter was used to engage the right coronary artery and single view of the right coronary artery was obtained. The pigtail catheter was advanced over the guidewire and placed in to the left ventricle. Left ventricular hemodynamics were obtained. No left ventricular cineangiography was performed. A pullback maneuver was performed to assess for any gradient. The patient was taken out of the cath laboratory in stable condition. COMPLICATIONS: None. FLUOROSCOPY TIME: 1.9 minutes. TOTAL CONTRAST USED: 25 cc contrast (contrast uses is Visipaque). HEMODYNAMICS: The left ventricular end diastolic pressure is elevated at 21 mmHg. CORONARY ANGIOGRAPHY: The left main coronary artery is mildly diffusely diseased with a bifurcation into left anterior descending artery and left circumflex coronary artery. The left anterior descending artery is mildly diffusely calcified in the proximal segment. It has a long tubular stenosis of 70-80% extending into the mid LAD. The diagonal branch arising from the diseased left anterior descending artery has diffuse tubular stenosis of again 70-80%. The second diagonal branches demonstrates luminal irregularities. The mid and distal LAD demonstrates no significant stenosis. Luminal irregularities are noted. The septal inspector assembly arising from the LAD has diffuse disease. The first diagonal branch as described above has diffuse tubular stenosis of 70- 80%. The second diagonal branch has mild disease in the proximal segment. The left circumflex coronary artery has diffuse luminal irregularities. The proximal segment it has a long tubular stenosis of 70-80%. Following this stenosis, there is an obtuse marginal branch which demonstrates diffuse disease in the proximal segment. The mid left circumflex is diffusely diseased due to proximal stenosis may be under filled. The second OM branch demonstrates diffuse disease. The posterolateral branch is noted arising from the left circumflex filling the nondominant distal branches of the right coronary artery. The right coronary artery is a nondominant vessel, gives off acute marginal branches. The distal right coronary artery is chronically totally occluded. The distal small posterolateral and PDA branches are filled by the left to right collaterals. IMPRESSION: 1. Severe multivessel coronary artery disease. a. Diffuse tubular stenosis in the left anterior descending artery. b. Proximal severe stenosis in the proximal left circumflex. c. Chronically totally occluded nondominant right coronary artery. 2. Elevated left ventricular end diastolic pressure.
== END 2017-02-08 23:59 | disposition home or self-care (01) ==
LOC: SOUO 02:26
PROVIDERS: ATTEND Internal Medicine Cardiovascular Disease
DX: I25.10 Atherosclerotic heart disease of native coronary artery without angina pectoris (principal); I25.82 Chronic total occlusion of coronary artery; I51.9 Heart disease, unspecified; I12.9 Hypertensive chronic kidney disease with stage 1 through stage 4 chronic kidney disease, or unspecified chronic kidney disease; N18.4 Chronic kidney disease, stage 4 (severe); I70.202 Unspecified atherosclerosis of native arteries of extremities, left leg; E11.22 Type 2 diabetes mellitus with diabetic chronic kidney disease; E78.5 Hyperlipidemia, unspecified; D63.1 Anemia in chronic kidney disease; G47.00 Insomnia, unspecified; Z22.322 Carrier or suspected carrier of Methicillin resistant Staphylococcus aureus; Z98.62 Peripheral vascular angioplasty status
CPT/HCPCS: 36415; 85025; 93005; 93458; 99152; 99153; C1769; J0360; J1644; J2250; J3010; Q9967